=== PATIENT | female | born 1950 | race Asian ===

== ENCOUNTER 2016-10-04 10:35 | Emergency (ER) | payer OTHER ==
--- NOTE | ~2016-10-04 | EKG ---
PATIENT: JAY AARON UNIT #: [id number] Ventricular Rate: 81 BPM Atrial Rate: 81 BPM P-R Interval: 136 ms QRS Duration: 90 ms Q-T Interval: 366 ms QTC Calculation(Bezet): 425 ms P [place]: 17 degrees Calculated R [place]: 54 degrees Calculated T [place]: 6 degrees Diagnosis Line: Normal sinus rhythm Diagnosis Line: Nonspecific ST abnormality Diagnosis Line: Abnormal ECG Diagnosis Line: No previous ECGs available Diagnosis Line: Confirmed by NATE ECHEVARRIA MD ([id number]) on Diagnosis Line: 10/04/2016 4:15:42 PM INTERPRETING MD: WALE SARAVIA
--- NOTE | ~2016-10-04 | CR72 ---
[facility] A Service [facility] RADIOLOGY TEXT RESULTS PATIENT: JAY AARON LOCATION: [facility] : 51 UNIT #: [id number] AGE: [address]: Lee Avina MD SEX: F ORDER DR: [id number] [facility]. [place], [place] [address] [id number] E MR#: [id number] Acc #: [id number] NAME: JAY AARON : 1950 SEX: F STUDY DATE/TIME: 10/04/2016 11:26 UNIT: NATHEN ROOM: STUDY DESCRIPTION: CR Chest Single View Portable Attending Physician: Lee Avina M.D. Ordering Physician: Lee Avina M.D. [facility] IMAGING REPORT This report is preliminary unless electronic signature is present EXAM Portable chest x-ray, 10/04/2016. HISTORY Dyspnea. Short of air. Lower body pain 2 days duration. TECHNIQUE AP radiograph of the chest is presented. COMPARISON STUDIES 03/19/2016 FINDINGS No acute appearing bony abnormality. Mild cardiac enlargement. The lungs are well inflated. Mild interstitial prominence, stable, this may be a reflection of chronic interstitial change versus recurrent borderline interstitial edema. There is no dense airspace disease, pleural effusion, or pneumothorax. No suspicious nodule. Dictated by... Adam Yang M.D. THIS IS AN ELECTRONICALLY VERIFIED REPORT Adam Yang M.D. at 10/04/2016 5:42 PM ARAVIND/jose luis TD: 10/04/2016 15:28 JOB #: [id number] MEDICAL IMAGING REPORT [facility] A Service [facility] RADIOLOGY TEXT RESULTS PATIENT: JAY AARON LOCATION: [facility] : 51 UNIT #: [id number] AGE: [address]: Lee Avina MD SEX: F ORDER DR: MIRA
[2016-10-04 10:44] LABS: POC - CKMB 1.9 ng/mL (0.0-7.9); POC - TROPONIN <0.05 ng/mL (<=0.05)
[2016-10-04 11:06] LABS: BASOPHIL% 0.6 % (0-2.5); EOSINOPHIL# 0.4 X10e3 (0-0.7); EOSINOPHIL% 5.6 % (0.0-7.0); HEMATOCRIT 38.8 % (35.0-45.0); HEMOGLOBIN 12.8 gm/dL (12.0-16.0); LYMPHOCYTE# 2.4 X10e3 (1.0-3.5); LYMPHOCYTE% 34.8 % (17.0-45.0); MEAN CELL VOLUME 80.2 FL (83-96); MEAN CORPUSCULAR HEMOGLOBIN 26.5 PG (28-34); MEAN PLATELET VOLUME 9.3 FL (6.5-11.5); MONOCYTE# 0.5 X10e3 (0-1.0); MONOCYTE% 7.5 % (3.0-12.0); NEUTROPHIL# 3.6 X10e3 (1.5-7.1); NEUTROPHIL% 51.5 % (40-75); PLATELET COUNT 189 X10e3 (140-420); RED BLOOD COUNT 4.84 X10e (3.90-5.30); RED CELL DISTRIBUTION WIDTH 13.7 % (11.0-15.5)
[2016-10-04 11:09] LABS: DIFF IND NO
[2016-10-04 11:21] LABS: PARTIAL THROMBOPLASTIN TIME 27.3 SECONDS (23.5-31.3); PROTHROMBIN TIME (PATIENT) 10.1 SECONDS (9.6-11.5)
[2016-10-04 11:30] LABS: ALBUMIN SERUM 3.9 g/dL (3.5-5.0); ALKALINE PHOSPHATASE 43 U/L (32-92); ALT (SGPT) 22 U/L (10-40); AST (SGOT) 30 U/L (10-42); BILIRUBIN, DIRECT 0.1 mg/dL (0.0-0.2); BILIRUBIN,INDIRECT 0.9 mg/dL (0.0-0.9); BLOOD UREA NITROGEN 19 mg/dL (9-23); BUN/CREATININE RATIO 31.66; CALCIUM SERUM 9.6 mg/dL (8.4-10.2); CARBON DIOXIDE 26 mmol/L (22-31); CHLORIDE 103 mmol/L (100-111); CREATININE SERUM 0.6 mg/dL (0.6-1.4); GLOM FILT RATE Estimated ABOVE60 mL/min (>60); GLUCOSE FASTING 94 mg/dL (70-110); POTASSIUM 4.2 mmol/L (3.5-5.1); PROTEIN TOTAL SERUM 7.9 g/dL (6.0-8.3); SODIUM 137 mmol/L (135-145)
[2016-10-04 13:43] LABS: POC - CKMB 1.9 ng/mL (0.0-7.9); POC - TROPONIN <0.05 ng/mL (<=0.05)
== END 2016-10-04 13:55 | disposition home or self-care (01) ==
LOC: CED 10:35
PROVIDERS: Emergency Medicine
DX: R06.00 Dyspnea, unspecified (principal)
CPT/HCPCS: 36415; 71010; 80048; 80076; 82553; 84484; 85025; 85610; 85730; 93005; 99284

== ENCOUNTER 2016-12-17 02:44 | Observation (INO) | payer OTHER ==
--- NOTE | ~2016-12-17 | OR ---
Unit #: [id number] #: [id number] Patient: JAY AARON [id number] [facility]. [place], [place] [address] [id number] I MR#: [id number] NAME: JAY AARON ROOM: 559 Date of Procedure: 12/19/2016 Admission Date: 12/17/2016 Surgeon: Mac Parker M.D. : 1950 Attending Physician: Mari Flowers M.D. Primary Care Physician: [facility] OPERATIVE REPORT ATTENDING PHYSICIAN Sherif Florence M.D. PREOPERATIVE DIAGNOSIS Right upper and right lower quadrant abdominal pain. PROCEDURES PERFORMED Upper gastrointestinal endoscopy and biopsy as well as colonoscopy up to terminal ileum. POSTOPERATIVE DIAGNOSES For upper endoscopy 1. Mild to moderate prepyloric antral erosive gastritis, multiple erosions in the antral area. A biopsy was obtained of the antrum for CLOtest. 2. Rest of the examination up to third part of the duodenum was normal. For colonoscopy 1. Mild sigmoid diverticulosis. Otherwise, normal examination up to cecum and terminal ileum. The quality of the prep was excellent. RECOMMENDATIONS The above findings do not explain any of the patient's symptomatology. A HIDA scan is in order and this will be done later today. If the HIDA scan is normal, the patient can be discharged home on pantoprazole 40 mg p.o. daily. She can also be started on regular diet. SEDATION USED MAC. DESCRIPTION OF PROCEDURE Following detailed explanation of the potential risks and complications of an upper endoscopy and a colonoscopy, namely perforation, bleeding, and complications related to sedation, the patient was brought to GI lab and laid in the left lateral decubitus position. Lubricated tip of the Olympus video upper endoscope was passed through the bite block into the proximal esophagus under direct vision. The entire esophageal mucosa was examined and appeared normal. Z-line was nicely demarcated, there being no esophagitis or hiatus hernia. The scope was then advanced into the gastric cavity and the latter was insufflated. Mucosa of the fundus, body, and antrum was examined. The patient was noted to have multiple erosions in the antral area indicating antral gastritis. Some of these were aphthous ulcers. Pylorus was intubated with visualization of the Unit #: [id number] #: [id number] Patient: NI,JAY normal duodenal bulb and second and third part of the duodenum. Upon withdrawal and retroflexion, incisura, cardia, and greater curve examined and biopsy obtained from the antrum for CLOtest. The scope was then withdrawn in the distal esophagus. The entire esophageal mucosa was examined all the way up to pharynx. No additional findings noted. The examination table was then turned by 180 degrees and the patient positioned for a colonoscopy. A digital rectal examination was performed, which was normal. Lubricated tip of the Olympus video colonoscope was inserted through the anus and advanced under direct vision. The scope was advanced and passed up to sigmoid into descending colon. Multiple medium-sized diverticula were seen this area. The scope tip was then navigated all the way up to cecum with visualization of the ileocecal valve and the appendiceal orifice. Preparation was excellent with good visualization and photodocumentation was obtained. Last few inches of the terminal ileum also visualized after intubation of the ileocecal valve and appeared normal. Successive segments of the colonic mucosa were examined upon withdrawal and appeared unremarkable. There being no polyps, mass lesions, or AVMs. Other than the diverticula seen in the left side, no other abnormalities were noted. The patient did not have any hemorrhoids at anal verge. The scope was then withdrawn. The patient returned to the recovery area. She tolerated the procedure without any postprocedure complications. Dictated by... Sosa Pham/celestina TD: 12/19/2016 13:30 JOB #: [id number] CC: Sherif Florence M.D. OPERATIVE REPORT Page 1 of 1 X Mac Parker MD X PROCEDURE OPERATIVE NOTE
--- NOTE | ~2016-12-17 | EKG ---
PATIENT: JAY AARON UNIT #: [id number] Ventricular Rate: 65 BPM Atrial Rate: 65 BPM P-R Interval: 150 ms QRS Duration: 92 ms Q-T Interval: 390 ms QTC Calculation(Bezet): 405 ms P [place]: 30 degrees Calculated R [place]: 65 degrees Calculated T [place]: 47 degrees Diagnosis Line: Normal sinus rhythm Diagnosis Line: Normal ECG Diagnosis Line: When compared with ECG of 04-OCT-2016 10:05, Diagnosis Line: T wave inversion no longer evident in Inferior Diagnosis Line: leads Diagnosis Line: Confirmed by NATE ECHEVARRIA MD ([id number]) on Diagnosis Line: 12/17/2016 4:32:06 PM INTERPRETING MD: WALE SARAVIA
--- NOTE | ~2016-12-17 | HP ---
Unit #: [id number] #: [id number] Patient: JAY AARON [id number] [facility]. [place], [place] [address] [id number] I MR#: [id number] NAME: JAY AARON ROOM: 26723 Age: 66 Sex: F Admission Date: 12/17/2016 : 1950 Attending Physician: Kody Romero M.D. Primary Care Physician: [facility] HISTORY AND PHYSICAL CHIEF COMPLAINT Abdominal pain. HISTORY OF PRESENT ILLNESS The patient is a 66-year-old female with no significant past medical history who presented to the emergency room complaining of abdominal pain. The patient had right breast biopsy at [facility] on 12/08/2016, fine indeterminate calcification right breast upper outer quadrant. The patient presented to the emergency room complaining of right upper quadrant pain. The patient stated the pain has been there for the last few days and is gradually worsening to the point that she cannot take it anymore. The patient had a workup with a CT of the abdomen and pelvis that showed partially imaged small bilateral pleural effusion and mild bibasilar atelectasis/infiltrate. The patient is being admitted for the above reasons. The patient denies any nausea or vomiting. The patient denies any chest pain or shortness of breath. PAST MEDICAL HISTORY A remote history of TB, not active. PAST SURGICAL HISTORY Breast biopsy. SOCIAL HISTORY The patient lives with her daughter and speaks [place] language. No history of smoking cigarettes, tobacco or alcohol use. FAMILY HISTORY Reviewed and none. ALLERGIES No known drug allergies. HOME MEDICATIONS Unknown. PHYSICAL EXAMINATION GENERAL APPEARANCE: The patient is lying on a bed, not in acute distress. VITAL SIGNS: Temperature 98.1. Pulse 69. Respiratory rate 16. Blood pressure 152/59. Sating 100% at room air. HEENT: Head: Atraumatic, normocephalic. ENT: Pupils equal, round, reacting to light and accommodation. Extraocular movements are intact. NECK: Supple. LUNGS: Decreased air entry at the bases. Unit #: [id number] #: [id number] Patient: JAY AARON HEART: Regular rate and rhythm. ABDOMEN: Soft. Positive bowel sounds. CHEST: The patient is status post breast biopsy with incision clean, dry and intact. No drainage. EXTREMITIES: No cyanosis. No clubbing. DIAGNOSTIC STUDIES LABORATORY: Glucose 90, BUN 14, creatinine 0.6, sodium 135, potassium 4.2, chloride 104, bicarb 23, calcium 9.4, total protein 7.6, AST 24, ALT 19, alkaline phosphatase 43. Amylase 48, lipase 52. BNP is 26. INR is one. WBC 6.4, hemoglobin 12.6, hematocrit 39, platelets 200. UA is negative. IMAGING: Chest x-ray shows stable mild cardiomegaly. No other acute chest finding. CT of the head shows no active intracranial abnormality. Extensive paranasal sinus mucous thickening. CT of the abdomen and pelvis shows no acute abdominal or aortic findings. Partially imaged small bilateral pleural effusions and mild bibasilar atelectasis/infiltrate. Normal appendix. ASSESSMENT 1. Abdominal pain. 2. Pneumonia with bilateral infiltrate/atelectasis. 3. Status post breast biopsy. PLAN To admit the patient to observation with telemetry, continue with IV antibiotics and repeat the chest x-ray, PA and lateral in the morning. We will check the abdominal ultrasound of the right upper quadrant and continue with DVT prophylaxis with Lovenox. EKG shows normal sinus rhythm. Normal EKG. Further recommendations will follow. Dictated by Sosa Fields TD: 12/17/2016 14:36 JOB #: [id number] HISTORY AND PHYSICAL Page 1 of 1 X X HISTORY AND PHYSICAL
--- NOTE | ~2016-12-17 | US5 ---
[facility] A Service of [facility] RADIOLOGY TEXT RESULTS PATIENT: JAY AARON LOCATION: [facility] 559-01 : 51 UNIT #: [id number] AGE: [address]: Alfonzo Francisco MD SEX: F ORDER DR: [id number] [facility] [address] [facility]. [place], [place] [address] [id number] I MR#: [id number] Acc #: [id number] NAME: JAY AARON : 1950 SEX: F STUDY DATE/TIME: 12/18/2016 8:10 UNIT: [facility] ROOM: [facility] STUDY DESCRIPTION: US Abdominal Complete Attending Physician: Alfonzo Francisco M.D. Ordering Physician: Andrade aPrsons M.D. [facility] MED[facility] IMAGING REPORT This report is preliminary unless electronic signature is present EXAM Abdominal sonogram. HISTORY Abdominal pain intermittently over the past 10 days predominantly toward the left. TECHNIQUE Ultrasound evaluation of the abdomen was performed with ballesteros-scale, color-flow, and Doppler spectral waveform analysis. FINDINGS The aorta is nondilated. Doppler flow pattern in the aorta, inferior vena cava, and portal vein is normal. The liver shows no evidence of focal mass or ductal dilatation. The common bile duct is 3 mm in diameter. No gallstones are seen. The pancreas has a normal echo pattern. There is no evidence of hydronephrosis. No shadowing kidney stones are seen and no gallstones are noted. There is a small amount of sludge in the gallbladder that is not felt to be significant. The spleen is normal in size. IMPRESSION There is a small amount of sludge in the gallbladder not felt to be significant. Otherwise negative abdominal sonogram. No evidence of cholelithiasis or bile duct dilatation. Normal kidneys. Dictated by... Luke Zee M.D. THIS IS AN ELECTRONICALLY VERIFIED REPORT Luke Zee M.D. at 12/18/2016 12:13 PM [facility] A Service of [facility] RADIOLOGY TEXT RESULTS PATIENT: JAY AARON LOCATION: [facility] 559-01 : 51 UNIT #: [id number] AGE: [address]: Alfonzo Francisco MD SEX: F ORDER DR: DAYSI/jose luis TD: 12/18/2016 09:17 JOB #: [id number] MEDICAL IMAGING REPORT Page 1 of 1 COPY
--- NOTE | ~2016-12-17 | CT71 ---
[facility] A Service [facility] RADIOLOGY TEXT RESULTS PATIENT: JAY AARON LOCATION: [place] [address] : 51 UNIT #: [id number] AGE: [address]: Alfonzo Francisco MD SEX: F ORDER DR: [id number] [address] [address] [id number] E MR#: [id number] Acc #: [id number] NAME: JAY AARON : 1950 SEX: F STUDY DATE/TIME: 12/17/2016 9:51 UNIT: NATHEN ROOM: STUDY DESCRIPTION: CT Head Wo Contrast Attending Physician: Derek Lindo D.O. Ordering Physician: Derek Lindo D.O. [facility] Care [facility] MED[facility] IMAGING REPORT This report is preliminary unless electronic signature is present EXAM CT head without contrast, 12/17/2016. HISTORY 66-year-old female with headache for 9 days. COMPARISON None TECHNIQUE Routine unenhanced axial images performed through the brain. This CT exam was performed with one or more of the following radiation dose reduction techniques: automatic exposure control, adjustment of mA and/or kV according to patient size, and iterative reconstruction. FINDINGS No hemorrhage, acute infarction, mass lesion, or abnormal extraaxial fluid collection. No midline shift or focal mass effect. Ventricular system normal in size and configuration. No acute bony abnormality. There is extensive paranasal sinus mucosal thickening. Visualized mastoid air cells are clear. IMPRESSION 1. No acute intracranial abnormality. 2. Extensive paranasal sinus mucosal thickening. Dictated by... Randolph Livingston M.D. THIS IS AN ELECTRONICALLY VERIFIED REPORT [facility] A Service of [facility] RADIOLOGY TEXT RESULTS PATIENT: JAY AARON LOCATION: [facility] [id number] : 51 UNIT #: [id number] AGE: [address]: Alfonzo Francisco MD SEX: F ORDER DR: Randolph Livingston M.D. at 12/18/2016 6:21 AM KYRIE/jose luis TD: 12/17/2016 10:20 JOB #: [id number] MEDICAL IMAGING REPORT Page 1 of 1 COPY
--- NOTE | ~2016-12-17 | NM21 ---
[facility] A Service of [facility] RADIOLOGY TEXT RESULTS PATIENT: JAY AARON LOCATION: [place] [address] : [birth year] UNIT #: [id number] AGE: [address]: Mari Flowers MD SEX: F ORDER DR: [id number] [facility] [address] [facility]. [place], [place] [address] [id number] I MR#: [id number] Acc #: [id number] NAME: JAY AARON : 1950 SEX: F STUDY DATE/TIME: 12/19/2016 12:22 UNIT: [facility] ROOM: [facility] STUDY DESCRIPTION: NM Hepatobiliary W GB Attending Physician: Sherif Florence M.D. Ordering Physician: Alfonzo Francisco M.D. Primary Care Physician: [facility] MEDICAL IMAGING REPORT This report is preliminary unless electronic signature is present EXAM Nuclear medicine HIDA scan. DATE: 12/19/2016 HISTORY 66-year-old female with complaints of right side abdominal pain for 11 days. COMPARISON Complete abdominal ultrasound 12/18/2016. CT abdomen and pelvis with contrast 12/17/2016. FINDINGS Following the administration of .0 mCi technetium 99m Choletec, anterior preliminary images were obtained of the abdomen at 15 minute intervals for 1 hour. Normal radiopharmaceutical uptake is seen throughout the liver parenchyma. Gallbladder is visualized within 45 minutes of imaging, and there is gradual clearance of radiopharmaceutical into the small bowel over the course of the examination. The findings indicate patency of both the cystic and common bile ducts. IMPRESSION Normal HIDA scan. Dictated by... Ashley Wilkins M.D. THIS IS AN ELECTRONICALLY VERIFIED REPORT Ashley Wilkins M.D. at 12/22/2016 8:30 AM [facility] A Service [facility] RADIOLOGY TEXT RESULTS PATIENT: JAY AARON LOCATION: [facility] 559 : 51 UNIT #: [id number] AGE: [address]: Mari Flowers MD SEX: F ORDER DR: BETTYE/becky TD: 12/19/2016 14:48 JOB #: [id number] MEDICAL IMAGING REPORT Page 1 of 1 COPY
--- NOTE | ~2016-12-17 | CR63 ---
[facility] A Service of [facility] RADIOLOGY TEXT RESULTS PATIENT: JAY AARON LOCATION: [place] [address] : 51 UNIT #: [id number] AGE: [address]: Sherif Florence MD SEX: F ORDER DR: [id number] [facility] [address] [place], [place] [address] [id number] I MR#: [id number] Acc #: [id number] NAME: JAY AARON : 1950 SEX: F STUDY DATE/TIME: 12/18/2016 8:35 UNIT: [facility] ROOM: [facility] STUDY DESCRIPTION: CR Chest 2 View Attending Physician: Alfonzo Francisco M.D. Ordering Physician: Kody Romero M.D. Primary Care Physician[facility] MEDICAL IMAGING REPORT This report is preliminary unless electronic signature is present EXAM Two-view chest, 12/18/2016. HISTORY 66-year-old female with shortness of air and chest pain for 8 days. COMPARISON Chest, 12/17/2016. FINDINGS 2 views of the chest demonstrate clear lungs. No pleural effusion or pneumothorax. Mild cardiomegaly is stable. Mediastinal and pulmonary vasculature are unremarkable. IMPRESSION Stable mild cardiomegaly. No other acute chest findings. Dictated by... Randolph Livingston M.D. THIS IS AN ELECTRONICALLY VERIFIED REPORT Randolph Livingston M.D. at 12/19/2016 8:54 AM KYRIE/jose luis TD: 12/18/2016 09:05 JOB #: [id number] MEDICAL IMAGING REPORT Page 1 of 1 COPY
--- NOTE | ~2016-12-17 | CO ---
Unit #: [id number] #: [id number] Patient: JAY AARON [address] [place], [place] [address] [id number] I MR#: [id number] NAME: JAY AARON ROOM: 559 Age: 66 Sex: F Admission Date: 12/17/2016 : 1950 Attending Physician: Mari Flowers M.D. Primary Care Physician: [facility] Consultation Date: 12/18/2016 CONSULTATION REPORT JOB NOTE: CC: DR. GÉNESIS OLIVEIRA PRIMARY CARE PHYSICIAN [facility]. REASON FOR CONSULTATION Right-sided abdominal pain. HISTORY OF PRESENT ILLNESS Ms. Aaron is a pleasant 66-year-old woman of Citizen Of [place] origin. The patient speaks very little Malay, but does understand a few words. She has presented with a history of right upper quadrant and right lower quadrant abdominal pain without any nausea, vomiting or weight loss. The pain has been present for the past few days. It is more or less continuous and more like a diffuse ache. The patient denies any history of associated fever or overt GI bleed in the form of hematemesis, melena, or hematochezia. Her CAT scan of the abdomen shows bilateral basilar atelectasis, but no masses in the abdomen. PAST MEDICAL HISTORY Remote history of TB, which is not active. PAST SURGICAL HISTORY Included breast biopsy for benign lesion. SOCIAL HISTORY She lives at home with her daughter and speaks Citizen Of [place]. 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 FAMILY HISTORY None of colon, pancreatic cancer, or liver disease. ALLERGIES No known drug allergies. MEDICATIONS At home none. REVIEW OF SYSTEMS Detailed review of organ systems does not reveal any recent weight loss. No history of fever, chills, rigors, headaches, seizures, chest pain, or syncope. No history of cough, expectoration, or hemoptysis. No history of dysuria, hematuria, or pyuria. No history of focal seizures or extremity weakness. Rest of the review of organ systems is unremarkable. Unit #: [id number] #: [id number] Patient: JAY AARON PHYSICAL EXAMINATION GENERAL: She is alert and oriented, and appears comfortable. The information was obtained through a telephonic optical mechanic apprentice. VITAL SIGNS: Her temperature is 98, pulse is 70 per minute and regular, respiratory rate is 18, blood pressure 105/64. She weighs 115 pounds, appears well nourished. HEENT: She has no pallor, icterus, lymphadenopathy, or peripheral edema. CARDIOVASCULAR: Normal heart sounds. No murmurs on auscultation. LUNGS: Reveal normal breath sounds. Good air entry. ABDOMEN: Soft with minimal tenderness in the right abdomen. There is no area of discrete rigidity, rebound, guarding, however, liver and spleen are not palpable. Bowel sounds normal. DIAGNOSTIC STUDIES LABORATORY RESULTS: The patient has normal CBC and serum chemistry shows normal LFTs and completely normal metabolic profile. CLINICAL IMPRESSION The differential diagnoses include gallbladder disease as well as right colonic disease and duodenal ulcer. MANAGEMENT PLAN The patient will be prepped for upper endoscopy and a colonoscopy for tomorrow and we will also obtain a hepatobiliary ultrasound later today. If the ultrasound is normal, a HIDA scan will be done tomorrow. The pros and cons of procedure, potential risks, complications were discussed with the patient. She was reassured. Thank you for asking me to see this pleasant woman. I appreciate the consult Dictated by... Sosa Pham/celestina TD: 12/22/2016 23:59 JOB #: [id number] CC: [facility] CONSULTATION REPORT Page 1 of 1 X Mac Parker MD CONSULTATION REPORT
--- NOTE | ~2016-12-17 | CT2 ---
[facility] A Service of [facility] RADIOLOGY TEXT RESULTS PATIENT: JAY AARON LOCATION: [facility] 559-01 : 51 UNIT #: [id number] AGE: [address]: Alfonzo Francisco MD SEX: F ORDER DR: [id number] [facility] [address] [place], [place] [address] [id number] E MR#: [id number] Acc #: [id number] NAME: JAY AARON : 1950 SEX: F STUDY DATE/TIME: 12/17/2016 9:53 UNIT: NATHEN ROOM: STUDY DESCRIPTION: CT Abd and Pelv W Cont Attending Physician: Derek Lindo D.O. Ordering Physician: Derek Lindo D.O. Primary Care Physician: [facility], MEDICAL IMAGING REPORT This report is preliminary unless electronic signature is present EXAM CT abdomen and pelvis with contrast, 12/17/2016. HISTORY 66-year-old female with right lower quadrant abdominal pain for 3 days. Pelvic pain. COMPARISON None TECHNIQUE Helical scan performed through the abdomen and pelvis following administration of IV contrast. Coronal and sagittal reformatted images. This CT exam was performed with one or more of the following radiation dose reduction techniques: automatic exposure control, adjustment of mA and/or kV according to patient size, and iterative reconstruction. FINDINGS Visualized lung bases demonstrate small bilateral pleural effusions and bibasilar atelectasis/infiltrate. The liver, spleen, pancreas, gallbladder, both adrenal glands, and both kidneys are within normal limits. Abdominal aorta normal in course and caliber without dissection. Scattered atherosclerotic calcification of the abdominal aorta. Small bowel is unremarkable without obstruction. The appendix appears within normal limits. Colon is unremarkable. No free fluid or free air. Urinary bladder, uterus, and adnexa are unremarkable. No free pelvic fluid. No acute bony abnormality. IMPRESSION [facility] A Service of [facility] RADIOLOGY TEXT RESULTS PATIENT: JAY AARON LOCATION: [facility] 559 : 51 UNIT #: [id number] AGE: [address]: Alfonzo Francisco MD SEX: F ORDER DR: 1. No acute abdominal or pelvic findings. 2. Partially imaged small bilateral pleural effusions and mild bibasilar atelectasis/infiltrate. 3. Normal appendix. Dictated by... Randolph Livingston M.D. THIS IS AN ELECTRONICALLY VERIFIED REPORT Randolph Livingston M.D. at 12/18/2016 6:21 AM KYRIE/jose luis TD: 12/17/2016 10:31 JOB #: [id number] MEDICAL IMAGING REPORT Page 1 of 1 COPY
--- NOTE | ~2016-12-17 | CR72 ---
[facility] A Service of [facility] RADIOLOGY TEXT RESULTS PATIENT: JAY AARON LOCATION: [place] [address] : 51 UNIT #: [id number] AGE: [address]: Alfonzo Francisco MD SEX: F ORDER DR: [id number] [facility] [address] [place], [place] [address] [id number] E MR#: [id number] Acc #: [id number] NAME: JAY AARON : 1950 SEX: F STUDY DATE/TIME: 12/17/2016 6:57 UNIT: NATHEN ROOM: STUDY DESCRIPTION: CR Chest Single View Portable Attending Physician: Derek Lindo D.O. Ordering Physician: Derek Lindo D.O. Primary Care Physician: [facility], MEDICAL IMAGING REPORT This report is preliminary unless electronic signature is present EXAM Portable chest, 12/17/2016. HISTORY 66-year-old female with chest pain and shortness of air for 7 days. COMPARISON Chest, 10/04/2016. FINDINGS Frontal chest demonstrates clear lungs. No pleural effusion or pneumothorax. Mild cardiomegaly is stable. Mediastinum and pulmonary vasculature unremarkable. IMPRESSION Stable mild cardiomegaly. No other acute chest findings. Dictated by... Randolph Livingston M.D. THIS IS AN ELECTRONICALLY VERIFIED REPORT Randolph Livingston M.D. at 12/18/2016 6:19 AM KYRIE/jose luis TD: 12/17/2016 09:26 JOB #: [id number] MEDICAL IMAGING REPORT Page 1 of 1 COPY
[2016-12-17 06:26] LABS: URINE APPEARANCE CLEAR; URINE BILIRUBIN NEG (NEG); URINE BLOOD NEG (NEG); URINE COLOR YELLOW; URINE GLUCOSE NEG (NEG); URINE KETONE NEG (NEG); URINE LEUKOCYTE ESTERASE NEG (NEG); URINE NITRATE NEG (NEG); URINE PROTEIN NEG (NEG); URINE SPECIFIC GRAVITY 1.007 (1.003-1.035); URINE UROBILINOGEN 0.2 MG/DL (NEG)
[2016-12-17 06:29] LABS: CULTURE INDICATED? NO
[2016-12-17 07:21] LABS: BASOPHIL% 0.5 % (0-2.5); EOSINOPHIL# 0.4 X10e3 (0-0.7); HEMOGLOBIN 12.6 gm/dL (12.0-16.0); LYMPHOCYTE% 31.5 % (17.0-45.0); MEAN CELL VOLUME 80.8 FL (83-96); MEAN CORPUSCULAR HGB CONC 32.2 g/dL (30-36); MEAN PLATELET VOLUME 9.2 FL (6.5-11.5); MONOCYTE# 0.7 X10e3 (0-1.0); MONOCYTE% 11.2 % (3.0-12.0); NEUTROPHIL# 3.3 X10e3 (1.5-7.1); NEUTROPHIL% 50.8 % (40-75); PLATELET COUNT 200 X10e3 (140-420); RED BLOOD COUNT 4.83 X10e (3.90-5.30); RED CELL DISTRIBUTION WIDTH 12.9 % (11.0-15.5); WHITE BLOOD COUNT 6.4 X10e3 (4.0-10.5)
[2016-12-17 07:32] LABS: DIFF IND NO
[2016-12-17 07:52] LABS: ALBUMIN SERUM 3.8 g/dL (3.5-5.0); BILIRUBIN, DIRECT 0.1 mg/dL (0.0-0.2); BILIRUBIN,INDIRECT 0.5 mg/dL (0.0-0.9); BILIRUBIN,TOTAL 0.6 mg/dL (0.2-2.0); BUN/CREATININE RATIO 23.33; CALCIUM SERUM 9.4 mg/dL (8.4-10.2); CREATININE SERUM 0.6 mg/dL (0.6-1.4); GLOM FILT RATE Estimated 95.7 mL/min (>60); POTASSIUM 4.2 mmol/L (3.5-5.1); PROTEIN TOTAL SERUM 7.6 g/dL (6.0-8.3)
[2016-12-17 08:02] LABS: POC - CKMB 1.4 ng/mL (0.0-7.9); POC - TROPONIN <0.05 ng/mL (<=0.05)
[2016-12-17 09:47] LABS: POC - CKMB 1.3 ng/mL (0.0-7.9); POC - TROPONIN <0.05 ng/mL (<=0.05)
[2016-12-17] MEDS ORDERED: DESYREL50 MG PO (15:37)
[2016-12-17] MEDS ORDERED: MELOXICAM7.5 MG PO (15:37)
[2016-12-17] MEDS ORDERED: VITAMIN D350000 UNIT PO (15:38)
[2016-12-17] MEDS ORDERED: TIZANIDINE HCL2 M1 PO (15:38)
[2016-12-17 18:26] LABS: %MB 2.3 % (0.0-4.0); MB 1.9 ng/ml
[2016-12-18 02:12] LABS: BASOPHIL% 0.5 % (0-2.5); BUN/CREATININE RATIO 21.11; CALCIUM SERUM 8.5 mg/dL (8.4-10.2); CREATININE SERUM 0.9 mg/dL (0.6-1.4); EOSINOPHIL# 0.4 X10e3 (0-0.7); EOSINOPHIL% 5.2 % (0.0-7.0); GLOM FILT RATE Estimated 67.1 mL/min (>60); HEMATOCRIT 37.7 % (35.0-45.0); HEMOGLOBIN 12.2 gm/dL (12.0-16.0); LYMPHOCYTE# 1.8 X10e3 (1.0-3.5); LYMPHOCYTE% 26.9 % (17.0-45.0); MEAN CELL VOLUME 80.4 FL (83-96); MEAN CORPUSCULAR HEMOGLOBIN 26.1 PG (28-34); MEAN CORPUSCULAR HGB CONC 32.4 g/dL (30-36); MEAN PLATELET VOLUME 8.9 FL (6.5-11.5); MONOCYTE# 0.8 X10e3 (0-1.0); MONOCYTE% 11.5 % (3.0-12.0); NEUTROPHIL# 3.8 X10e3 (1.5-7.1); NEUTROPHIL% 55.9 % (40-75); PLATELET COUNT 206 X10e3 (140-420); POTASSIUM 4.1 mmol/L (3.5-5.1); RED BLOOD COUNT 4.69 X10e (3.90-5.30); RED CELL DISTRIBUTION WIDTH 13.3 % (11.0-15.5); WHITE BLOOD COUNT 6.8 X10e3 (4.0-10.5)
[2016-12-18 02:15] LABS: DIFF IND NO
[2016-12-18 02:57] LABS: %MB 2.8 % (0.0-4.0); MB 2.1 ng/ml
[2016-12-19 06:01] LABS: HEMATOCRIT 38.6 % (35.0-45.0); HEMOGLOBIN 12.5 gm/dL (12.0-16.0); MEAN CELL VOLUME 80.4 FL (83-96); MEAN CORPUSCULAR HEMOGLOBIN 26.1 PG (28-34); MEAN CORPUSCULAR HGB CONC 32.5 g/dL (30-36); MEAN PLATELET VOLUME 8.8 FL (6.5-11.5); RED BLOOD COUNT 4.8 X10e (3.90-5.30); RED CELL DISTRIBUTION WIDTH 13.4 % (11.0-15.5); WHITE BLOOD COUNT 6.8 X10e3 (4.0-10.5)
[2016-12-19 07:04] LABS: ALBUMIN SERUM 3.5 g/dL (3.5-5.0); BILIRUBIN,TOTAL 1.1 mg/dL (0.2-2.0); BUN/CREATININE RATIO 23.33; CALCIUM SERUM 8.8 mg/dL (8.4-10.2); CREATININE SERUM 0.6 mg/dL (0.6-1.4); GLOM FILT RATE Estimated 95.7 mL/min (>60)
[2016-12-19] MEDS ORDERED: PROTONIX PO (11:43)
[2016-12-19 22:25] LABS: URINE APPEARANCE CLEAR; URINE BILIRUBIN NEG (NEG); URINE BLOOD NEG (NEG); URINE COLOR YELLOW; URINE GLUCOSE NEG (NEG); URINE KETONE NEG (NEG); URINE LEUKOCYTE ESTERASE NEG (NEG); URINE NITRATE NEG (NEG); URINE PROTEIN NEG (NEG); URINE UROBILINOGEN 0.2 MG/DL (NEG)
[2016-12-20 10:32] LABS: CHLAMYDIA TRACH Not Detected (Not Detected); N GONOR Not Detected (Not Detected)
== END 2016-12-20 09:56 | disposition home or self-care (01) ==
LOC: CED 02:44 → CEDOF 13:00 → CED 13:36 → CEDOF 13:36 → C5B 18:02 → CEDOF 18:02 → C5B 18:02
PROVIDERS: Emergency Medicine; Family Medicine; Internal Medicine
DX: K29.60 Other gastritis without bleeding (principal); J18.9 Pneumonia, unspecified organism; K57.30 Diverticulosis of large intestine without perforation or abscess without bleeding; Z86.11 Personal history of tuberculosis; I51.7 Cardiomegaly; Z98.890 Other specified postprocedural states
CPT/HCPCS: 36415; 70450; 71010; 71020; 74177; 76700; 78226; 80048; 80053; 80076; 81003; 82150; 82308; 82550; 82553; 83690; 83880; 84484; 85025; 85027; 85379; 87040; 87077; 87086; 87491; 87591; 87808; 87905; 93005; 96365; 96367; 96372; 96375; 96376; 99285; A9537; G0378; J0456; J0696; J1650; J2250; J2270; Q9967

== ENCOUNTER 2017-01-02 08:21 | Emergency (ER) | payer OTHER ==
--- NOTE | ~2017-01-02 | CT71 ---
[facility] A Service of [facility] RADIOLOGY TEXT RESULTS PATIENT: JAY AARON LOCATION: [place] : 51 UNIT #: [id number] AGE: [address]: Kym Rodrigues SEX: F ORDER DR: [id number] [facility] [address] [facility] [address] [place], [place] [address] [id number] E MR#: [id number] Acc #: [id number] NAME: JAY AARON : 1950 SEX: F STUDY DATE/TIME: 01/02/2017 10:08 UNIT: NATHEN ROOM: STUDY DESCRIPTION: CT Head Wo Contrast Attending Physician: Kym Rodrigues Pa-C Ordering Physician: Ed Doctor [id number] [facility] Primary Care Physician: [facility] IMAGING REPORT This report is preliminary unless electronic signature is present EXAM CT head 01/02/2017. INDICATIONS Headache for the last 5 days, predominately on the right side. No trauma. COMPARISON 12/17/2016 TECHNIQUE Axial images were obtained from the base to the vertex without contrast. This CT exam was performed with one or more of the following radiation dose reduction techniques: automatic exposure control, adjustment of mA and/or kV according to patient size, and iterative reconstruction. FINDINGS Again seen is chronic mucosal thickening in the paranasal sinuses. There may be acute left sphenoid sinusitis. There are no skull fractures. Ventricular size and configuration are normal. There is no acute infarct or hemorrhage. There are no masses. IMPRESSION The brain is normal. There is chronic mucosal thickening in the paranasal sinuses. There is probably a mild degree of acute left sphenoid sinusitis. Dictated by... Luke Davila Jr., M.D. THIS IS AN ELECTRONICALLY VERIFIED REPORT Luke Davila Jr., M.D. at 01/03/2017 11:21 AM CHERIE/jackson [facility] A Service of [facility] RADIOLOGY TEXT RESULTS PATIENT: JAY AARON LOCATION: [place] : 51 UNIT #: [id number] AGE: [address]: Kym Rodrigues SEX: F ORDER DR: TD: 01/02/2017 12:06 JOB #: [id number] MEDICAL IMAGING REPORT Page 1 of 1
--- NOTE | ~2017-01-02 | CR230 ---
[facility] A Service of [facility] RADIOLOGY TEXT RESULTS PATIENT: JAY AARON LOCATION: [facility] : 51 UNIT #: [id number] AGE: [address]: Kym Rodrigues SEX: F ORDER DR: [id number] [facility] [address] [facility] [place], [place] [address] [id number] E MR#: [id number] Acc #: [id number] NAME: JAY AARON : 1950 SEX: F STUDY DATE/TIME: 01/02/2017 UNIT: [facility] ROOM: STUDY DESCRIPTION: CR Shoulder Min 2 View Rt Attending Physician: Kym Rodrigues Pa-C Ordering Physician: Ed Doctor [id number] [facility] Primary Care Physician: [facility] MEDICAL IMAGING REPORT This report is preliminary unless electronic signature is present EXAM Right shoulder 3 views, 01/02/2017 09:38 hours HISTORY 1-week history of right upper arm and shoulder pain. No reported injury. COMPARISON None FINDINGS AP views in internal and external rotation and a scapula Y-view demonstrate no fracture, dislocation or significant spurring. There appears to be some lucency at the greater tuberosity near the rotator cuff insertion which could indicate cystic change at the rotator cuff insertion site. IMPRESSION No fracture or dislocation. Mild cystic lucency at the greater tuberosity at the rotator cuff insertion site could be indicative of underlying degenerative changes of the rotator cuff. Dictated by... Sheri Elizondo M.D. THIS IS AN ELECTRONICALLY VERIFIED REPORT Sheri Elizondo M.D. at 01/02/2017 2:29 PM Josseline TD: 01/02/2017 11:20 JOB #: [id number] MEDICAL IMAGING REPORT Page 1 of 1 COPY
[~2017-01-02 08:21] MED LIST: DESYREL50 MG PO; MELOXICAM7.5 MG PO; PROTONIX PO; TIZANIDINE HCL2 M1 PO; VITAMIN D350000 UNIT PO
[2017-01-02 09:03] LABS: URINE SOURCE CLEAN CATCH
[2017-01-02 09:12] LABS: URINE APPEARANCE CLEAR; URINE BILIRUBIN NEG (NEG); URINE BLOOD NEG (NEG); URINE COLOR YELLOW; URINE GLUCOSE NEG (NEG); URINE KETONE NEG (NEG); URINE LEUKOCYTE ESTERASE NEG (NEG); URINE NITRATE NEG (NEG); URINE PROTEIN NEG (NEG); URINE UROBILINOGEN 0.2 MG/DL (NEG)
[2017-01-02 09:18] LABS: CULTURE INDICATED? NO
== END 2017-01-02 13:00 | disposition home or self-care (01) ==
LOC: CED 08:21
DX: R51 Headache (principal); M25.511 Pain in right shoulder; R30.0 Dysuria
CPT/HCPCS: 36415; 70450; 73030; 81003; 85652; 99284

== ENCOUNTER 2017-03-18 02:22 | Emergency (ER) | payer OTHER ==
[~2017-03-18] VITALS: Ht 147.3 cm; Wt 52.2 kg
[2017-03-18 03:23] LABS: BASOPHIL% 0.4 % (0-2.5); EOSINOPHIL# 0.5 X10e3 (0-0.7); EOSINOPHIL% 7.3 % (0.0-7.0); HEMATOCRIT 36.1 % (35.0-45.0); HEMOGLOBIN 11.6 gm/dL (12.0-16.0); LYMPHOCYTE# 2.8 X10e3 (1.0-3.5); LYMPHOCYTE% 43.1 % (17.0-45.0); MEAN CELL VOLUME 79.1 FL (83-96); MEAN CORPUSCULAR HEMOGLOBIN 25.4 PG (28-34); MEAN CORPUSCULAR HGB CONC 32.2 g/dL (30-36); MEAN PLATELET VOLUME 8.5 FL (6.5-11.5); MONOCYTE# 0.6 X10e3 (0-1.0); MONOCYTE% 8.9 % (3.0-12.0); NEUTROPHIL# 2.6 X10e3 (1.5-7.1); NEUTROPHIL% 40.3 % (40-75); PLATELET COUNT 225 X10e3 (140-420); RED BLOOD COUNT 4.56 X10e (3.90-5.30); RED CELL DISTRIBUTION WIDTH 13.6 % (11.0-15.5); WHITE BLOOD COUNT 6.5 X10e3 (4.0-10.5)
[2017-03-18 03:37] LABS: DIFF IND NO
[2017-03-18 03:48] LABS: BUN/CREATININE RATIO 21.42; CALCIUM SERUM 9.2 mg/dL (8.4-10.2); CREATININE SERUM 0.7 mg/dL (0.6-1.4); GLOM FILT RATE Estimated 90.9 mL/min (>60); POTASSIUM 3.9 mmol/L (3.5-5.1)
== END 2017-03-18 05:40 | disposition home or self-care (01) ==
LOC: CED 02:22
PROVIDERS: Emergency Medicine
DX: R51 Headache (principal); M54.2 Cervicalgia
CPT/HCPCS: 36415; 80048; 85025; 85652; 96374; 96375; 99284; J1100; J1885

== ENCOUNTER 2017-03-20 23:45 | Emergency (ER) | payer OTHER ==
--- NOTE | ~2017-03-20 | CT2 ---
[facility] A Service of [facility] RADIOLOGY TEXT RESULTS PATIENT: JAY AARON LOCATION: [facility] : 51 UNIT #: [id number] AGE: [address]: Alexandre Rain MD SEX: F ORDER DR: [id number] [facility] [address] [place], [place] [address] [id number] E MR#: [id number] Acc #: [id number] NAME: JAY AARON : 1950 SEX: F STUDY DATE/TIME: 03/21/2017 6:01 UNIT: [facility] ROOM: STUDY DESCRIPTION: CT Abd and Pelv W Cont Attending Physician: Alexandre Rain M.D. Ordering Physician: Aston Diaz M.D. Primary Care Physician: [facility] IMAGING REPORT This report is preliminary unless electronic signature is present EXAM CT abdomen and pelvis with IV contrast. COMPARISON December 17, 2016. INDICATION 66-year-old female with generalized abdominal pain, nausea, emesis, and weakness since last night. TECHNIQUE Axial CT imaging of the abdomen and pelvis was performed after IV administration of 100 mL of Isovue-370. Coronal and sagittal reformats were constructed. This CT exam was performed with one or more of the following radiation dose reduction techniques: automatic exposure control, adjustment of mA and/or kV according to patient size, and iterative reconstruction. FINDINGS There is a tiny umbilical hernia minimally containing small bowel. No evidence of associated obstruction. Calcified injection granuloma of the fat in the right buttock. Diffuse osteopenia. Mild multilevel degenerative facet disease of the lower lumbar spine. No acute fractures or suspicious osseous lesions. No acute findings in the lower chest. Calcified granulomas in the liver and spleen. Gallbladder, pancreas and adrenal glands are unremarkable. Detailed evaluation of the abdominal organs is limited by motion. No definite abnormality of the kidneys. No hydronephrosis or hydroureter. The uterus is grossly unremarkable. There are calcified parametrial vessels on the left. No adnexal masses. Appendix is normal. No bowel obstruction. No free fluid or pneumoperitoneum. There is calcified and noncalcified plaque throughout the abdominal aorta extending into iliac arteries. Main branches of the abdominal aorta are widely patent. No evidence of venous thrombosis. [facility] A Service of [facility] RADIOLOGY TEXT RESULTS PATIENT: JAY AARON LOCATION: [facility] : 51 UNIT #: [id number] AGE: [address]: Alexandre Rain MD SEX: F ORDER DR: IMPRESSION 1. No acute findings in the abdomen and pelvis or imaged lower chest. 2. Very small umbilical hernia, minimally containing small bowel. No evidence of obstruction or inflammatory change. 3. Atherosclerotic disease in the abdomen and pelvis. Main branches of the abdominal aorta are widely patent. 1. Dictated by... Kareem Shoemaker M.D. THIS IS AN ELECTRONICALLY VERIFIED REPORT Kareem Shoemaker M.D. at 03/24/2017 11:22 AM BJ/harleen TD: 03/21/2017 12:17 JOB #: [id number] MEDICAL IMAGING REPORT Page 1 of 1 COPY
--- NOTE | ~2017-03-20 | EKG ---
PATIENT: JAY AARON UNIT #: [id number] Ventricular Rate: 71 BPM Atrial Rate: 71 BPM P-R Interval: 138 ms QRS Duration: 80 ms Q-T Interval: 380 ms QTC Calculation(Bezet): 412 ms P [place]: 49 degrees Calculated R [place]: 59 degrees Calculated T [place]: 55 degrees Diagnosis Line: Normal sinus rhythm Diagnosis Line: Normal ECG Diagnosis Line: When compared with ECG of 17-DEC-2016 07:51, Diagnosis Line: No significant change was found Diagnosis Line: Confirmed by YANA DOAN MD ([id number]) on Diagnosis Line: 03/21/2017 12:17:02 PM INTERPRETING MD: ROGELIO
--- NOTE | ~2017-03-20 | EKG ---
PATIENT: JAY AARON UNIT #: [id number] Ventricular Rate: 83 BPM Atrial Rate: 83 BPM P-R Interval: 164 ms QRS Duration: 92 ms Q-T Interval: 374 ms QTC Calculation(Bezet): 439 ms P [place]: 53 degrees Calculated R [place]: 43 degrees Calculated T [place]: 64 degrees Diagnosis Line: Normal sinus rhythm Diagnosis Line: Normal ECG Diagnosis Line: When compared with ECG of 21-MAR-2017 00:00, Diagnosis Line: (unconfirmed) Diagnosis Line: No significant change was found Diagnosis Line: Confirmed by YANA DOAN MD ([id number]) on Diagnosis Line: 03/21/2017 12:19:09 PM INTERPRETING MD: ROGELIO
--- NOTE | ~2017-03-20 | CR72 ---
[facility] A Service of [facility] RADIOLOGY TEXT RESULTS PATIENT: JAY AARON LOCATION: [facility] : 51 UNIT #: [id number] AGE: [address]: Alexandre Rain MD SEX: F ORDER DR: [id number] [facility] [address] [place], [place] [address] [id number] E MR#: [id number] Acc #: [id number] NAME: JAY AARON : 1950 SEX: F STUDY DATE/TIME: 03/21/2017 0:30 UNIT: NATHEN ROOM: STUDY DESCRIPTION: CR Chest Single View Portable Attending Physician: Alexandre Rain M.D. Ordering Physician: Ed Robbie Parsons M.D. Primary Care Physician: [facility], MEDICAL IMAGING REPORT This report is preliminary unless electronic signature is present EXAM Chest x-ray 03/21/2017 HISTORY 66-year-old female in the ED complaining of 2-day history of chest pain, nausea, vomiting and abdomen pain. TECHNIQUE AP portable upright chest x-ray. FINDINGS Stable mild cardiomegaly. Pulmonary vascularity is normal. The lungs appear clear. No visible pulmonary infiltrate or pleural effusion. No change since 12/18/2016. IMPRESSION No active disease. Mild cardiomegaly. No change since 12/18/2016. Dictated by... Kings Ham M.D. THIS IS AN ELECTRONICALLY VERIFIED REPORT Kings Ham M.D. at 03/21/2017 4:46 PM GUANACO/carroll TD: 03/21/2017 12:47 JOB #: [id number] MEDICAL IMAGING REPORT Page 1 of 1 COPY
--- NOTE | ~2017-03-20 | EKG ---
PATIENT: JAY AARON UNIT #: [id number] Ventricular Rate: 71 BPM Atrial Rate: 71 BPM P-R Interval: 138 ms QRS Duration: 80 ms Q-T Interval: 380 ms QTC Calculation(Bezet): 412 ms P [place]: 49 degrees Calculated R [place]: 59 degrees Calculated T [place]: 55 degrees Diagnosis Line: Normal sinus rhythm Diagnosis Line: Normal ECG Diagnosis Line: When compared with ECG of 17-DEC-2016 07:51, Diagnosis Line: No significant change was found Diagnosis Line: Confirmed by YANA DOAN MD ([id number]) on Diagnosis Line: 03/21/2017 12:17:02 PM Diagnosis Line: Also confirmed by YANA DOAN MD ([id number]), Diagnosis Line: visual effects editor LIONEL ADAM ([id number]) on 03/22/2017 Diagnosis Line: 7:48:26 AM INTERPRETING MD: ROGELIO
[2017-03-21 03:47] LABS: POC - CKMB 2.7 ng/mL (0.0-7.9); POC - TROPONIN <0.05 ng/mL (<=0.05)
[2017-03-21 04:26] LABS: URINE SOURCE CLEAN CATCH
[2017-03-21 04:47] LABS: BASOPHIL% 0.4 % (0-2.5); EOSINOPHIL# 0.3 X10e3 (0-0.7); EOSINOPHIL% 3.3 % (0.0-7.0); HEMOGLOBIN 12.3 gm/dL (12.0-16.0); LYMPHOCYTE# 1.6 X10e3 (1.0-3.5); LYMPHOCYTE% 18.6 % (17.0-45.0); MEAN CELL VOLUME 78.8 FL (83-96); MEAN CORPUSCULAR HEMOGLOBIN 26.2 PG (28-34); MEAN CORPUSCULAR HGB CONC 33.2 g/dL (30-36); MEAN PLATELET VOLUME 8.5 FL (6.5-11.5); MONOCYTE# 0.7 X10e3 (0-1.0); MONOCYTE% 7.7 % (3.0-12.0); NEUTROPHIL# 6.1 X10e3 (1.5-7.1); PLATELET COUNT 239 X10e3 (140-420); RED CELL DISTRIBUTION WIDTH 13.7 % (11.0-15.5); WHITE BLOOD COUNT 8.7 X10e3 (4.0-10.5)
[2017-03-21 04:51] LABS: URINE APPEARANCE CLOUDY; URINE BILIRUBIN NEG (NEG); URINE BLOOD TRACE (NEG); URINE COLOR YELLOW; URINE GLUCOSE NEG (NEG); URINE KETONE NEG (NEG); URINE LEUKOCYTE ESTERASE 1+ (NEG); URINE NITRATE NEG (NEG); URINE PROTEIN NEG (NEG); URINE SPECIFIC GRAVITY 1.024 (1.003-1.035); URINE UROBILINOGEN 0.2 MG/DL (NEG)
[2017-03-21 04:51] LABS: DIFF IND NO
[2017-03-21 04:55] LABS: CULTURE INDICATED? YES; URINE BACTERIA AUWI NEG (NEGATIVE); URINE SQUAMOUS EPITHELIAL CELL FEW /[HPF]
[2017-03-21 04:59] LABS: POC - CKMB 1.4 ng/mL (0.0-7.9); POC - TROPONIN <0.05 ng/mL (<=0.05)
[2017-03-21 05:02] LABS: BILIRUBIN, DIRECT 0.1 mg/dL (0.0-0.2); BILIRUBIN,INDIRECT 0.7 mg/dL (0.0-0.9); BILIRUBIN,TOTAL 0.8 mg/dL (0.2-2.0); BUN/CREATININE RATIO 31.66; CALCIUM SERUM 9.2 mg/dL (8.4-10.2); CREATININE SERUM 0.6 mg/dL (0.6-1.4); GLOM FILT RATE Estimated 95.7 mL/min (>60); POTASSIUM 4.3 mmol/L (3.5-5.1); PROTEIN TOTAL SERUM 7.6 g/dL (6.0-8.3)
== END 2017-03-21 08:40 | disposition home or self-care (01) ==
LOC: CED 23:45
PROVIDERS: Emergency Medicine
DX: N39.0 Urinary tract infection, site not specified (principal); K42.9 Umbilical hernia without obstruction or gangrene
CPT/HCPCS: 36415; 71010; 74177; 80048; 80076; 81003; 82550; 82553; 83690; 84484; 85025; 87086; 93005; 99285; Q9967

== ENCOUNTER 2017-03-24 15:36 | Observation (INO) | payer OTHER ==
[~2017-03-24] VITALS: Ht 149.9 cm; Wt 52.0 kg
--- NOTE | ~2017-03-24 | HP ---
Unit #: [id number] #: [id number] Patient: JAY AARON [id number] [address] [address] [id number] I MR#: [id number] NAME: JAY AARON ROOM: 59091 Age: 66 Sex: F Admission Date: 03/24/2017 : 1950 Attending Physician: Génesis Romero M.D. Primary Care Physician: [facility]. HISTORY AND PHYSICAL CHIEF COMPLAINT Abdominal pain. HISTORY OF PRESENT ILLNESS The patient is a 66-year-old female with no significant past medical history, who presented to the emergency room complaining of the abdominal pain. The abdominal pain has been sharp and is mainly in the right upper quadrant region. The patient was seen here in the emergency room after breast biopsy back in November of 2016. The patient had upper endoscopy and colonoscopy and that showed mild to moderate prepyloric antral erosive gastritis, multiple erosions in the antral area and sigmoid diverticulosis. The patient stated the patient was seen multiple times in the emergency room for the similar presentation for the last week The patient was diagnosed with the UTI and started on Bactrim. The patient complains of the dizziness and the nausea. The patient was found to have an acute kidney injury with a creatinine of 1.6 and is being admitted for the above reasons. PAST MEDICAL HISTORY History of a gastritis and TB, not active. PAST SURGICAL HISTORY Right breast biopsy and the endoscopy and colonoscopy. HOME MEDICATIONS Diclofenac, Bactrim and estradiol. ALLERGIES No known drug allergies. SOCIAL HISTORY No history of smoking cigarettes, tobacco or any illicit drug abuse. FAMILY HISTORY Reviewed and none. REVIEW OF SYSTEMS Positive for the abdominal pain. Positive for nausea and vomiting and all other systems have been reviewed and are none. PHYSICAL EXAMINATION GENERAL APPEARANCE: On examination the patient is lying on a bed not in acute distress. VITAL SIGNS: Temperature 98, pulse 80, respiratory rate 18, blood Unit #: [id number] #: [id number] Patient: JAY AARON pressure 121/66, sating 100% at room air. HEENT: Head atraumatic and normocephalic. Pupils equal, round and reacting to light and accommodation. Extraocular movements are intact. NECK: Supple. LUNGS: Decreased air entry at the bases. HEART: Regular rate and rhythm. ABDOMEN: Soft, positive bowel sounds. Tenderness at the right epigastric region. EXTREMITIES: No cyanosis. No clubbing. NEUROLOGIC: Alert, awake, oriented. No gross focal motor deficit. DIAGNOSTIC STUDIES LABORATORY DATA: Sodium 134, potassium 4.5, chloride 104, bicarb 21, glucose 103, BUN 19, creatinine 1.6, AST 23, ALT 17, albumin 3.9, lipase 52, amylase is 44, WBC 9.2, hemoglobin 11.9, hematocrit 36.6, platelets 258. IMAGING: CT of the abdomen and pelvis shows no acute findings in the abdomen and pelvis. Imaging of the lower chest revealed a small umbilical hernia, minimally containing small bowel. No evidence of obstruction or inflammatory change. Atherosclerotic disease in the abdomen and pelvis, main branches of the abdominal aorta widely patent. LABORATORY: The from the gastric emptying is positive. ASSESSMENT 1. Abdominal pain. 2. Acute kidney injury. 3. History of a gastritis. 4. Hypo natremia. PLAN Plan to admit the patient to the observation with the telemetry. Continue with the IV fluids normal saline at 100 mL per hour. PPI Protonix and will have a GI consult for the right upper quadrant abdominal pains and positive from the gastric emptying done in November and morphine and Zofran for supportive care and further recommendations will follow. Dictated by Sosa Fields/soledad TD: 03/24/2017 18:20 JOB #: [id number] Unit #: [id number] #: [id number] Patient: JAY AARON HISTORY AND PHYSICAL Page 1 of 1 X GÉNESIS ROMERO MD HISTORY AND PHYSICAL
--- NOTE | ~2017-03-24 | DS ---
Unit #: [id number] #: [id number] Patient: JAY AARON [id number] [address] [address] [id number] I MR#: [id number] NAME: JAY AARON ROOM: 306 Age: 66 Sex: F Admission Date: 03/24/2017 : 1950 Discharge Date: 03/25/2017 Attending Physician: Riaz Dove M.D. Primary Care Physician: [facility] DISCHARGE SUMMARY This is a 66-year-old female from [facility] who is admitted with some abdominal pain. It is localized in the right upper quadrant region. She does have some tenderness. She was seen by GI. CT of the abdomen shows umbilical hernia but no other pathology was noted. The patient had upper endoscopy and colonoscopy. It showed the mild to moderate antral erosive gastritis and sigmoid diverticulosis. On admission, the patient had a creatinine of 1.6 treated with IV fluids and creatinine today 0.8. Additionally, the patient has been complaining of some headache on the right side of her face not associated with any neurological symptoms. No vision problems. The patient is stable from medical standpoint to be discharged home and to be followed at the outpatient. IMAGING STUDIES CT of the abdomen showed umbilical hernia, otherwise, unremarkable. CONSULTATION Dr. Parker, GI. CONDITION ON DISCHARGE Stable. Follow with Dr. Parker as an outpatient. We will recommend the patient to follow with Dr. Hurd as an outpatient for the further evaluation of her headaches and the right side face pain. DISPOSITION To home. HOME MEDICATION 1. Omeprazole 20 mg daily. 2. Estradiol with Vagifem. 3. Diclofenac sodium as needed. Dictated by... Sosa Nobles/harleen TD: 03/28/2017 07:59 JOB #: [id number] Unit #: [id number] #: [id number] Patient: JAY AARON DISCHARGE SUMMARY Page 1 of 1 X Riaz Dove MD DISCHARGE SUMMARY
--- NOTE | ~2017-03-24 | CT71 ---
[facility] A Service [facility] RADIOLOGY TEXT RESULTS PATIENT: JAY AARON LOCATION: [facility] : 51 UNIT #: [id number] AGE: [address]: Riaz Dove MD SEX: F ORDER DR: [id number] [place] [id number] [facility] [place], [place] [address] [id number] I MR#: [id number] Acc #: [id number] NAME: JAY AARON : 1950 SEX: F STUDY DATE/TIME: 03/24/2017 16:17 [facility]: [facility] STUDY DESCRIPTION: CT Head Wo Contrast Attending Physician: Riaz Dove M.D. Ordering Physician: Alexandre Castaneda M.D. Primary Care Phys[facility]AG[facility] REPORT This report is preliminary unless electronic signature is present EXAM CT scan of the head without contrast. INDICATIONS Headache for 3 days with no known injury. COMPARISON 01/02/2017 TECHNIQUE Unenhanced images were obtained through the brain. This CT exam was performed with one or more of the following radiation dose reduction techniques: automatic exposure control, adjustment of mA and/or kV according to patient size, and iterative reconstruction. FINDINGS There is some mucosal thickening in the ethmoid sinuses. The ventricles and subarachnoid spaces are normal and there are no masses or extraaxial fluid collections or hemorrhage. IMPRESSION Ethmoid sinus mucosal thickening, otherwise, normal. Dictated by... Ashutosh Eastman M.D. THIS IS AN ELECTRONICALLY VERIFIED REPORT Ashutosh Eastman M.D. at 03/26/2017 9:07 AM FEL/jkeyonna [facility] A Service [facility] RADIOLOGY TEXT RESULTS PATIENT: JAY AARON LOCATION: [facility] 306 : 51 UNIT #: [id number] AGE: [address]: Riaz Dove MD SEX: F ORDER DR: TD: 03/25/2017 16:05 JOB #: [id number] MEDICAL IMAGING REPORT Page 1 of 1 COPY
--- NOTE | ~2017-03-24 | CO ---
Unit #: [id number] #: [id number] Patient: JAY AARON [id number] [address] [place], [place] [address] [id number] MR#: [id number] NAME: JAY AARON ROOM: 306 Age: 66 Sex: F Admission Date: 03/24/2017 : 1950 Attending Physician: Riaz Dove M.D. [facility] Consultation Date: 03/25/2017 CONSULTATION REPORT REASON FOR CONSULTATION Right-sided abdominal pain. HISTORY Ms. Aaron is a 66-year-old woman of [place] origin. Patient presents with a history of pain in the right side of the abdomen, in fact her pain is from right side of the face, right side of the neck, right upper quadrant, right abdomen, as well as right lower extremity and it is more like a sensation of sensory tingling. She does not have any pain that keeps her awake at night time. Her appetite and weight are unchanged and there is no history of any change in bowel movements. There is no history of upper GI bleed in the form (1) melena or hematochezia. She has been to the emergency room multiple times and has been treated for (1) UTIs. PAST MEDICAL HISTORY Significant for history of gastritis, tuberculosis, which is not active. PAST SURGICAL HISTORY Right breast biopsy, as well as endoscopy and colonoscopy. HOME MEDICATIONS Bactrim, history of diclofenac. ALLERGIES She has no known drug allergies. SOCIAL HISTORY Does not smoke or drink alcohol. Lives at home. FAMILY HISTORY None of colon, pancreatic cancer or liver disease. Detailed review of organ system does not reveal any recent weight loss. No history of fever, chills, rigors, headache, seizure chest pain. No history of cough, expectoration, hemoptysis. No history of dysuria, hematuria, pyuria. No history of focal seizures or extremity weakness on examination. PHYSICAL EXAMINATION GENERAL: She is awake, alert and oriented, and appears comfortable. VITAL SIGNS: Stable with a temperature of 99, pulse 74 per minute, respiratory rate 16, blood pressure 170/46. She weighs 114 pounds. She is close to her baseline weight. HEENT: She has no pallor, icterus, lymphadenopathy or peripheral edema. CARDIOVASCULAR: Normal heart sounds. No murmurs of auscultation. Unit #: [id number] #: [id number] Patient: NI,JAY LUNGS: Normal breath sounds. Good air entry. ABDOMEN: Soft, nontender, liver and spleen are not palpable. Bowel sounds normal. DIAGNOSTIC STUDIES LABORATORY EVALUATION: Shows a hemoglobin of 11.9 yesterday and 10.8 today. MCV 78 and platelet count is 258. INR is 1.0. Normal BUN of 19, creatinine 1.6 yesterday and is 13 and 0.8 today. Glucose is 148, CO2 is 21, albumin is preserves at 3.9. LFTs are normal. INR is 1.0. Urinalysis shows 1+ leukocyte esterase positive, 10-25 WBCs. Patient has had a normal upper endoscopy and a colonoscopy within the past few months. In addition, she has a normal ultrasound, HIDA scan and CAT scan. Before embarking on any additional workup it would be important to see if there is any neurologic deficit or entry. In view of the fact that her symptoms are over the entire right side of the body in valerie distribution. Would also try to quality anemia with iron studies. She most likely is iron deficiency, also obtain B12 and folate levels. Thank you very much for asking me to see this pleasant man. Dictated by... Sosa Pham/kj TD: 03/27/2017 07:56 JOB #: [id number] CONSULTATION REPORT Page 1 of 1 X Mac Parker MD CONSULTATION REPORT
[2017-03-24 16:19] LABS: BASOPHIL# 0.1 X10e3 (0-0.3); BASOPHIL% 0.6 % (0-2.5); EOSINOPHIL# 0.7 X10e3 (0-0.7); EOSINOPHIL% 7.3 % (0.0-7.0); HEMATOCRIT 36.6 % (35.0-45.0); HEMOGLOBIN 11.9 gm/dL (12.0-16.0); LYMPHOCYTE# 2.6 X10e3 (1.0-3.5); LYMPHOCYTE% 28.3 % (17.0-45.0); MEAN CELL VOLUME 78.4 FL (83-96); MEAN CORPUSCULAR HEMOGLOBIN 25.5 PG (28-34); MEAN CORPUSCULAR HGB CONC 32.5 g/dL (30-36); MEAN PLATELET VOLUME 8.3 FL (6.5-11.5); MONOCYTE# 0.7 X10e3 (0-1.0); MONOCYTE% 8.1 % (3.0-12.0); NEUTROPHIL# 5.1 X10e3 (1.5-7.1); NEUTROPHIL% 55.7 % (40-75); PLATELET COUNT 258 X10e3 (140-420); RED BLOOD COUNT 4.67 X10e (3.90-5.30); RED CELL DISTRIBUTION WIDTH 13.8 % (11.0-15.5); WHITE BLOOD COUNT 9.2 X10e3 (4.0-10.5)
[2017-03-24 16:21] LABS: DIFF IND NO
[2017-03-24 16:46] LABS: ALBUMIN SERUM 3.9 g/dL (3.5-5.0); BILIRUBIN, DIRECT 0.1 mg/dL (0.0-0.2); BILIRUBIN,INDIRECT 0.9 mg/dL (0.0-0.9); BUN/CREATININE RATIO 11.87; CALCIUM SERUM 8.9 mg/dL (8.4-10.2); CREATININE SERUM 1.6 mg/dL (0.6-1.4); GLOM FILT RATE Estimated 33.5 mL/min (>60); POTASSIUM 4.5 mmol/L (3.5-5.1); PROTEIN TOTAL SERUM 7.5 g/dL (6.0-8.3)
[2017-03-24] MEDS ORDERED: VAGIFEM10 MCG VAG (17:22)
[2017-03-24] MEDS ORDERED: VOLTAREN75 MG PO (17:23)
[2017-03-25 05:15] LABS: BASOPHIL% 0.2 % (0-2.5); HEMATOCRIT 32.7 % (35.0-45.0); HEMOGLOBIN 10.8 gm/dL (12.0-16.0); LYMPHOCYTE# 1.3 X10e3 (1.0-3.5); LYMPHOCYTE% 19.5 % (17.0-45.0); MEAN CELL VOLUME 78.4 FL (83-96); MEAN CORPUSCULAR HEMOGLOBIN 25.9 PG (28-34); MEAN PLATELET VOLUME 8.5 FL (6.5-11.5); MONOCYTE# 0.1 X10e3 (0-1.0); MONOCYTE% 0.8 % (3.0-12.0); NEUTROPHIL# 5.4 X10e3 (1.5-7.1); NEUTROPHIL% 79.5 % (40-75); PLATELET COUNT 214 X10e3 (140-420); RED BLOOD COUNT 4.17 X10e (3.90-5.30); RED CELL DISTRIBUTION WIDTH 13.6 % (11.0-15.5); WHITE BLOOD COUNT 6.8 X10e3 (4.0-10.5)
[2017-03-25 05:19] LABS: DIFF IND NO
[2017-03-25 05:53] LABS: BUN/CREATININE RATIO 16.25; CALCIUM SERUM 8.3 mg/dL (8.4-10.2); CREATININE SERUM 0.8 mg/dL (0.6-1.4); GLOM FILT RATE Estimated 77.4 mL/min (>60); POTASSIUM 4.6 mmol/L (3.5-5.1)
[2017-03-25] MEDS ORDERED: OMEPRAZOLE20 M2 PO (13:21)
== END 2017-03-25 15:39 | disposition home or self-care (01) ==
LOC: CED 15:36 → CEDOF 17:38 → CED 18:15 → C3A PCU 20:34 → CEDOF 20:34 → C3A PCU 20:34
PROVIDERS: Emergency Medicine; Internal Medicine
DX: R10.9 Unspecified abdominal pain (principal); N17.9 Acute kidney failure, unspecified; E87.1 Hypo-osmolality and hyponatremia; Z87.19 Personal history of other diseases of the digestive system
CPT/HCPCS: 36415; 70450; 80048; 80076; 82150; 83690; 85025; 94640; 94760; 96361; 96372; 96374; 96375; 96376; 99285; C9113; G0378; J1100; J1650; J2270; J2405